=== PATIENT | male | born 1970 | race Caucasian/White ===

== ENCOUNTER 2021-09-14 00:18 | Emergency (ER) | payer SELFPAY ==
[~2021-09-14] VITALS: Ht 193 cm; Wt 128.0 kg
[~2021-09-14 00:18] MED LIST: ACHD5005 PO
[2021-09-14 00:38] VITALS: BP 160/96
[2021-09-14] MEDS ORDERED: TRIM/SULFAMETH 160/800 (SEPTRA DS) TAB PO ONE (01:00)
[2021-09-14] MEDS ORDERED: LIDOCAINE/EPI 1%-1:100,000 (XYLOCAINE) 20ML INJ ONE (01:00)
[2021-09-14] MEDS ORDERED: LIDOCAINE/EPI 1%-1:100,000 (XYLOCAINE) 10 ML ONE (01:00)
[2021-09-14] MEDS ORDERED: DOXYCYCLINE 100 MG (VIBRAMYCIN) TABLET PO ONE (01:00)
[2021-09-14] MEDS ORDERED: DOXY100T2 PO (01:24)
[2021-09-14] MEDS ORDERED: SULF1TAB38 PO (01:24)
--- NOTE | 2021-09-14 01:24 | ED General ---
General Chief Complaint: Bite-Animal/Human/Insect Stated Complaint: BITE ON R ARM Nursing Triage Note: Patient presented to the ER tonight with concerns about what he believes to be a spider bite on his right upper arm. Patient states clear discharge from the site but states tonight the area is red and swollen. Source of Information: Patient Exam Limitations: No Limitations History of Present Illness Date Seen by Provider: September 14, 2021 Time Seen by Provider: 00:53 Initial Comments This 50-year-old gentleman presents to the emergency room with pain, erythema, swelling, and induration around a lesion on the right upper arm. His female partnership development manager believes this to be a spider bite. It has drained some clear fluid but not any purulent material. It appears to be coming to a head as an abscess. Patient denies any fever or chills. Allergies and Home Medications Allergies Coded Allergies: No Known Drug Allergies (Unverified , 09/02/10) Patient Home Medication List Home Medication List Reviewed: Yes Doxycycline Hyclate (Doxycycline Hyclate) 100 Mg Tablet, 100 MG PO BID Prescribed by: RADHA COTTON on 09/14/21 0124 Hydrocodone Bit/Acetaminophen (Lortab 5 Mg Tablet) 1 Each Tablet, 1-2 EACH PO Q6H PRN Prescribed by: VENTURA AMES on 09/03/10 0025 Sulfamethoxazole/Trimethoprim (Bactrim Ds Tablet) 1 Each Tablet, 1 EACH PO BID Prescribed by: RADHA COTTON on 09/14/21 0124 Review of Systems Review of Systems Constitutional: no symptoms reported EENTM: no symptoms reported Respiratory: no symptoms reported Cardiovascular: no symptoms reported Gastrointestinal: no symptoms reported Genitourinary: no symptoms reported Musculoskeletal: no symptoms reported Skin: see HPI Psychiatric/Neurological: No Symptoms Reported Hematologic/Lymphatic: No Symptoms Reported Immunological/Allergic: no symptoms reported Past Bdmvucs-Cfyvsn-Uqnbuw Hx Patient Social History Tobacco Use?: No Substance use?: Yes Substance type: Marijuana Alcohol Use?: Yes Past Medical History Surgeries: No Respiratory: No Cardiac: No Neurological: No Reproductive Disorders: No Gastrointestinal: No Musculoskeletal: No Endocrine: No HEENT: No Cancer: No Psychosocial: No Integumentary: No Physical Exam Vital Signs Vital Signs - First Documented 09/14/21 00:38 Temp 36.9 Pulse 106 Resp 16 B/P (MAP) 160/96 (117) Pulse Ox 97 O2 Delivery Room Air Capillary Refill : Less Than 3 Seconds Height, Weight, BMI Height: '" Weight: lbs. oz. kg; 34.00 BMI Method:Stated General Appearance: No Apparent Distress, WD/WN HEENT: PERRL/EOMI, Normal ENT Inspection Neck: Normal Inspection Respiratory: Lungs Clear, Normal Breath Sounds, No Accessory Muscle Use Cardiovascular: Regular Rate, Rhythm, No Edema, No Murmur Extremity: Other (Large patch of erythema with warmth and induration on the right lateral upper arm. The center of this area has a central head that appears near the surface of the skin.) Neurologic/Psychiatric: Alert, Oriented x3, No Motor/Sensory Deficits, Normal Mood/Affect Skin: Normal Color, Warm/Dry Procedures/Interventions I&D : Blade Size: 11 Progress Skin was cleaned with alcohol. Local anesthesia was provided with approximately 4 mL of lidocaine with epinephrine. Skin was then cleaned with chlorhexidine and a 5 mm incision was placed over the center of the head. A small amount of purulent material was expressed from the wound. Culture was obtained. I did attempt to break up any loculations with a set of forceps. This resulted in scant additional purulent material expression. Progress/Results/Core Measures Suspected Sepsis SIRS Temperature: Pulse: 106 Respiratory Rate: 16 Blood Pressure 160 /96 Mean: 117 Results/Orders My Orders Orders - RADHA SHOEMAKER MD Doxycycline Hyclate Tablet (Vibramycin T (09/14/21 01:00) Sulfamethoxazole/Trimet Ds Tab (Bactrim (09/14/21 01:00) Lidocaine/Epi 1% 1:100,000 (Xylocaine /E (09/14/21 01:00) Lidocaine/Epi 1% 1:100,000 (Xylocaine 1% (09/14/21 01:00) Wound Culture (09/14/21 01:19) Medications Given in ED Current Medications Medications Dose Ordered Sig/Lukas Route Start Time Stop Time Status Last Admin Dose Admin Doxycycline Hyclate 100 mg ONCE ONCE PO 09/14/21 01:00 09/14/21 01:01 DC 09/14/21 01:03 100 MG Lidocaine/ Epinephrine 20 ml ONCE ONCE INJ 09/14/21 01:00 09/14/21 01:01 DC 09/14/21 01:02 20 ML Trimethoprim/ Sulfamethoxazole 1 ea ONCE ONCE PO 09/14/21 01:00 09/14/21 01:01 DC 09/14/21 01:03 1 EA Vital Signs/I&O 09/14/21 09/14/21 00:38 01:30 Temp 36.9 36.9 Pulse 106 Resp 16 14 B/P (MAP) 160/96 (117) Pulse Ox 97 O2 Delivery Room Air Capillary Refill : Less Than 3 Seconds Blood Pressure Mean: 117 Progress Note : Progress Note Incision and drainage was performed and culture collected. Patient was treated with Bactrim and doxycycline. See discharge instructions for further discussion. Edges of the erythema were marked with a skin marker. Departure Impression Primary Impression: Cellulitis and abscess of upper extremity Additional Impression: Encounter for incision and drainage procedure Disposition: HOME, SELF-CARE Condition: Improved Departure-Patient Inst. Decision time for Depature: 01:21 Referrals: VIET ELLISON MD (PCP/Family) Primary Care Physician Patient Instructions: Abscess Incision and Drainage ED, Cellulitis (Skin Infection), Adult ED Add. Discharge Instructions: Complete your antibiotics as prescribed. Expect some worsening of the redness and swelling initially, but expect improvement by 24 hours after starting antibiotics. Apply warm moist compresses for 20 to 30 minutes several times a day to encourage draining. Return to the ER if you have worsening symptoms despite following these instructions. This includes development of chills, fever over 100 degrees, or rapid spread of the area of redness and swelling. Your doxycycline antibiotic may cause sun sensitivity. Use caution when in direct sunlight while on this antibiotic. Call with questions or concerns. All discharge instructions reviewed with patient and/or family. Voiced understanding. Scripts Sulfamethoxazole/Trimethoprim (Bactrim Ds Tablet) 1 Each Tablet 1 EACH PO BID, #20 TAB Prov: RADHA SHOEMAKER MD 09/14/21 Doxycycline Hyclate (Doxycycline Hyclate) 100 Mg Tablet 100 MG PO BID, #20 TAB 0 Refills Prov: RADHA SHOEMAKER MD 09/14/21 RADHA SHOEMAKER MD September 14, 2021 01:24
== END 2021-09-14 01:30 | disposition home or self-care (01) ==
LOC: EDUNIT# 00:18 → ER 00:23
DX: L03.113 Cellulitis of right upper limb (principal); L02.413 Cutaneous abscess of right upper limb
CPT/HCPCS: 87070; 87077; 87186; 87205; 99283